=== PATIENT | male | born 1955 | race Caucasian/White ===

== ENCOUNTER 2022-07-29 11:39 | Emergency (ER) | payer OTHER ==
[~2022-07-29] VITALS: Ht 165.1 cm; Wt 70.0 kg
[2022-07-29] MEDS ORDERED: IBUPROFEN 400MG TABLET PO ONE (12:15)
[2022-07-29] MEDS ORDERED: ACETAMINOPHEN 325MG TABLET PO ONE (12:15)
[2022-07-29 12:30] VITALS: BP 142/62
[2022-07-29] MEDS ORDERED: TOPUD MT (13:09)
[2022-07-29] MEDS ORDERED: IBUP-2028 MT (13:09)
== END 2022-07-29 13:33 | disposition home or self-care (01) ==
LOC: ER 11:39
DX: S39.82XA Other specified injuries of lower back, initial encounter (principal); S49.81XA Other specified injuries of right shoulder and upper arm, initial encounter; Y93.55 Activity, bike riding; Y92.488 Other paved roadways as the place of occurrence of the external cause; I10 Essential (primary) hypertension; E11.9 Type 2 diabetes mellitus without complications; V19.49XA Pedal cycle driver injured in collision with other motor vehicles in traffic accident, initial encounter
CPT/HCPCS: 99283